=== PATIENT | female | born 1970 | race Caucasian/White ===

== ENCOUNTER 2017-04-09 15:58 | Emergency (ER) | payer OTHER ==
[~2017-04-09] VITALS: Ht 165.1 cm; Wt 65.0 kg
[~2017-04-09 15:58] MED LIST: BACTRIM DS1 TAB PO; CIPROFLOXACN500 MG PO; DIFLUCAN150 MG PO; GLYBURIDE2.5 MG OR; LORTAB 5 OR; METROGEL VAG0.75 % VA; METRONIDAZOL0.75 % VA; METRONIDAZOL500 MG PO; PENICILLN VK500 MG OR; PERCOCET 5/321 COMBO PO; PRENATA3 OR; ULTRAM50 M1 OR
[2017-04-09] MEDS ORDERED: XANAX0.5 MG PO (16:36)
[2017-04-09 17:27] LABS: HEMATOCRIT 41.7 % (37.0-47.0); HEMOGLOBIN 13.9 g/dl (12.0-16.0); IMMATURE GRANULOCYTES 0.3 % (0.0-1.0); MEAN CELL VOLUME 89.5 fL CALC (80.0-100.0); MEAN CORPUSCULAR HGB 29.8 pG CALC (26.0-32.0); MEAN CORPUSCULAR HGB CONC 33.3 g/L CALC (32.0-36.0); NEUT# 5.63 thou/uL (2.00-7.15); RED BLOOD COUNT 4.66 mill/uL (4.20-5.60); RED CELL DISTRI WIDTH 12.4 % (11.5-15.5)
[2017-04-09] MEDS ORDERED: BACTRIM DS1 TAB PO (17:45)
[2017-04-09 17:47] LABS: ALBUMIN 4.2 g/dL (3.2-5.0); ALKALINE PHOSPHATASE 66 u/l (38-126); ANION GAP 16 (6-22 (CALC)); BILIRUBIN, TOTAL 0.7 mg/dL (0.0-1.4); BUN 10 mg/dL (7-17); BUN/CREATININE RATIO 11 (12-20 (CALC)); CALCIUM 9.5 mg/dL (8.4-10.2); CARBON DIOXIDE 26 mmol/l (22-30); CHLORIDE 106 mmol/l (95-108); CREATININE 0.9 mg/dL (0.5-1.0); GFR > 60 ML/MIN (>=60 (CALC)); GFR FOR AFR.AMER. > 60 ML/MIN (>=60 (CALC)); GLUCOSE 91 mg/dL (65-105); SGOT/AST 35 u/l (14-36); SGPT/ALT 25 u/l (9-52); SODIUM 144 mmol/l (137-146); TOTAL PROTEIN 7.2 g/dL (6.3-8.2)
[2017-04-09 19:38] VITALS: BP 124/74
== END 2017-04-09 19:38 | disposition home or self-care (01) | DRG 603 ==
LOC: ED 15:58
PROVIDERS: Emergency Medicine
DX: L03.115 Cellulitis of right lower limb (principal); M79.671 Pain in right foot; Z98.890 Other specified postprocedural states; R22.41 Localized swelling, mass and lump, right lower limb